=== PATIENT | female | born 1940 | race Caucasian/White ===

== ENCOUNTER 2020-03-21 02:02 | Inpatient (IN) ==
[2020-03-21 04:07] LABS: ABS Lymphocytes 0.5 10^3/ul (1.0-4.8); ABS Monocytes 0.3 10^3/ul (0-0.8); ABS Neutrophils 6.7 10^3/ul (1.5-7.7); Eosinophil % 0.1 %; Hematocrit 36 % (35-47); Hemoglobin 12.5 g/dL (12.0-16.0); Lymphocyte % 6.6 %; Mean Corpuscular HGB Conc 35 g/dL (31-36); Mean Corpuscular Hemoglobin 32 pg (27-31); Mean Corpuscular Volume 94 fL (80-97); Mean Platelet Volume 8.1 fL (7.4-10.4); Platelet Count 178 10^3/uL (150-450); Red Blood Count 3.85 10^6 /uL (3.70-4.87); Red Cell Distribution Width 14 % (10-15); White Blood Count 7.5 10^3/uL (3.5-10.8)
[2020-03-21 04:15] LABS: INR 1.26 (0.82-1.09)
[2020-03-21 04:28] LABS: ALT 20 U/L (7-52); AST 24 U/L (13-39); Albumin 4.1 g/dL (3.2-5.2); Albumin/Globulin Ratio 1.5 (1-3); Alkaline Phosphatase 49 U/L (34-104); Anion Gap 7 mmol/L (2-11); BUN/Creatinine Ratio 33.3 (8-20); Blood Urea Nitrogen 17 mg/dL (6-24); CO2 Carbon Dioxide 26 mmol/L (22-32); Calcium 9.4 mg/dL (8.6-10.3); Chloride 103 mmol/L (101-111); EGFR Non-African American 115.7 (>60); Globulin 2.7 g/dL (2-4); Glucose 138 mg/dL (70-100); Potassium 3.6 mmol/L (3.5-5.0); Sodium 136 mmol/L (135-145); Total Protein 6.8 g/dL (6.4-8.9)
[2020-03-21 04:30] LABS: Troponin I 0.01 ng/mL (<0.03)
[2020-03-21 04:38] LABS: Alcohol, S < 10 mg/dL (<10)
[2020-03-21 04:57] LABS: Urine Appearance Cloudy; Urine Bilirubin Negative (Negative); Urine Blood Negative (Negative); Urine Color Yellow; Urine Glucose Negative (Negative); Urine Ketones 1+ (Negative); Urine Nitrite Negative (Negative); Urine Protein 1+(30 mg/dL) (Negative); Urine Specific Gravity 1.026 (1.010-1.030); Urine Urobilinogen Negative (Negative)
[2020-03-21 05:01] LABS: Urine Bacteria Absent (Absent); Urine Red Blood Cell Trace(0-2/hpf) (Absent); Urine Squamous Epithelial Cell Present (Absent); Urine White Blood Cell 1+(6-10/hpf) (Absent)
[2020-03-21] MEDS ORDERED: levETIRAcetam 1000MG IVPREMIX 1,000 MG/100 ML BAG IVPB ONE (05:41)
[2020-03-21] MEDS ORDERED: Ondansetron 4 mg VIAL 2 MG/ML 2 ml VIAL IV PRN (08:57)
[2020-03-21] MEDS ORDERED: Polyethylene Glycol 3350 17 GM PACKET PO PRN (09:33)
[2020-03-21] MEDS ORDERED: Magnesium Hydroxide LIQ 30 ML UDC PO PRN (09:33)
[2020-03-21] MEDS ORDERED: Senna TAB 8.6 mg TAB PO PRN (09:33)
[2020-03-21] MEDS: levETIRAcetam 1000MG IVPREMIX 1,000 MG/100 ML BAG IVPB SCH (16:05)
[2020-03-21] MEDS: Magnesium Hydroxide LIQ 30 ML UDC PO SCH (21:36)
[2020-03-22] MEDS: Morphine 2 MG/ML SYRINGE IV PRN ×2 (03:31→07:56)
[2020-03-22] MEDS: levETIRAcetam 1000MG IVPREMIX 1,000 MG/100 ML BAG IVPB SCH ×2 (05:23→17:03)
[2020-03-22] MEDS: Magnesium Hydroxide LIQ 30 ML UDC PO SCH ×2 (08:04→19:41)
[2020-03-22 11:23] LABS: ABS Eosinophils 0.1 10^3/ul (0-0.6); ABS Lymphocytes 0.6 10^3/ul (1.0-4.8); ABS Monocytes 0.5 10^3/ul (0-0.8); ABS Neutrophils 5.4 10^3/ul (1.5-7.7); Eosinophil % 0.9 %; Hematocrit 38 % (35-47); Hemoglobin 12.7 g/dL (12.0-16.0); Lymphocyte % 8.7 %; Mean Corpuscular HGB Conc 33 g/dL (31-36); Mean Corpuscular Hemoglobin 32 pg (27-31); Mean Corpuscular Volume 95 fL (80-97); Mean Platelet Volume 7.8 fL (7.4-10.4); Platelet Count 164 10^3/uL (150-450); Red Blood Count 3.99 10^6 /uL (3.70-4.87); Red Cell Distribution Width 14 % (10-15); White Blood Count 6.5 10^3/uL (3.5-10.8)
[2020-03-22 13:35] LABS: BUN/Creatinine Ratio 40.4 (8-20); Calcium 9.4 mg/dL (8.6-10.3); EGFR African American 153.9 (>60); EGFR Non-African American 127.2 (>60); Magnesium 2.1 mg/dL (1.9-2.7); Potassium 3.8 mmol/L (3.5-5.0)
[2020-03-22] MEDS ORDERED: Lorazepam PYXIS KEY PRN (14:54)
[2020-03-22] MEDS ORDERED: LORazepam 2 mg VIAL 1 ml ONE (14:57)
[2020-03-22] MEDS ORDERED: Lorazepam PYXIS KEY ONE (14:57)
[2020-03-22] MEDS: LORazepam 2 mg VIAL 1 ml IV PUSH PRN (15:00)
[2020-03-23] MEDS: LORazepam 2 mg VIAL 1 ml IV PUSH PRN (02:24)
[2020-03-23] MEDS: levETIRAcetam 1000MG IVPREMIX 1,000 MG/100 ML BAG IVPB SCH ×2 (04:45→17:15)
[2020-03-23 05:15] LABS: Calcium 8.7 mg/dL (8.6-10.3); Magnesium 2.1 mg/dL (1.9-2.7); Potassium 3.6 mmol/L (3.5-5.0)
[2020-03-23 05:20] LABS: BUN/Creatinine Ratio 47.5 (8-20); EGFR African American 185.4 (>60); EGFR Non-African American 153.2 (>60)
[2020-03-23 05:35] LABS: ABS Eosinophils 0.1 10^3/ul (0-0.6); ABS Monocytes 0.7 10^3/ul (0-0.8); ABS Neutrophils 5.2 10^3/ul (1.5-7.7); Eosinophil % 1.4 %; Hematocrit 36 % (35-47); Lymphocyte % 14.2 %; Mean Corpuscular HGB Conc 33 g/dL (31-36); Mean Corpuscular Hemoglobin 32 pg (27-31); Mean Corpuscular Volume 95 fL (80-97); Mean Platelet Volume 7.8 fL (7.4-10.4); Platelet Count 160 10^3/uL (150-450); Red Blood Count 3.77 10^6 /uL (3.70-4.87); Red Cell Distribution Width 13 % (10-15)
[2020-03-23] MEDS: Morphine 2 MG/ML SYRINGE IV PRN ×2 (06:10→14:44)
[2020-03-23] MEDS: hydrALAZINE 20 mg/ml 1 ML Vial IV IV SLOW PU PRN ×3 (09:36→17:10)
[2020-03-23] MEDS: Magnesium Hydroxide LIQ 30 ML UDC PO SCH ×3 (10:04→21:17)
[2020-03-23] MEDS ORDERED: Metoprolol Tartrate 5 mg VIAL 5 ml VIAL (1 mg/ml) IV ONE (10:29)
[2020-03-23] MEDS ORDERED: Metoprolol Tartrate 5 mg VIAL 5 ml VIAL (1 mg/ml) IV PRN ×2 (15:18→17:33)
[2020-03-23 16:20] LABS: Activated Partial Thrombo Time 26.7 seconds (26.0-38.0); INR 1.23 (0.82-1.09)
[2020-03-23] MEDS ORDERED: fentaNYL 100 mcg/2 ml 50 MCG/ML VIAL ONE (17:39)
[2020-03-23] MEDS ORDERED: Propofol 10 MG/ML 20 ML BTL ONE ×2 (17:42→20:01)
[2020-03-23] MEDS ORDERED: Bupivacaine 0.25% SDV 30 ML ONE ×2 (18:06→20:38)
[2020-03-23] MEDS ORDERED: Lidocaine 1% w EPI 1:100,000 MDV 20 ML VIAL ONE ×2 (18:06→20:37)
[2020-03-23] MEDS: Metoprolol Tartrate 5 mg VIAL 5 ml VIAL (1 mg/ml) IV PRN (18:19)
[2020-03-23] MEDS ORDERED: Vancomycin 750 MG in NS 0.9% 250 ML IVPB ONE (19:00)
[2020-03-23] MEDS ORDERED: Ondansetron 4 mg VIAL 2 MG/ML 2 ml VIAL IV PRN (19:04)
[2020-03-23] MEDS ORDERED: Naloxone 0.4 mg VIAL 0.4 mg/ml 1 ml VIAL IV PRN (19:04)
[2020-03-23] MEDS ORDERED: HYDROmorphone 1 MG/1 ML SYRINGE IV PRN (19:04)
[2020-03-23] MEDS ORDERED: fentaNYL 100 mcg/2 ml 50 MCG/ML VIAL IV PRN (19:04)
[2020-03-24] MEDS: Morphine 2 MG/ML SYRINGE IV PRN ×3 (01:02→16:01)
[2020-03-24 04:27] LABS: ABS Eosinophils 0.1 10^3/ul (0-0.6); ABS Lymphocytes 1.2 10^3/ul (1.0-4.8); ABS Monocytes 0.7 10^3/ul (0-0.8); ABS Neutrophils 5.2 10^3/ul (1.5-7.7); Eosinophil % 1.7 %; Hematocrit 36 % (35-47); Hemoglobin 12.2 g/dL (12.0-16.0); Mean Corpuscular HGB Conc 34 g/dL (31-36); Mean Corpuscular Hemoglobin 32 pg (27-31); Mean Corpuscular Volume 95 fL (80-97); Mean Platelet Volume 7.6 fL (7.4-10.4); Platelet Count 173 10^3/uL (150-450); Red Blood Count 3.81 10^6 /uL (3.70-4.87); Red Cell Distribution Width 14 % (10-15); White Blood Count 7.3 10^3/uL (3.5-10.8)
[2020-03-24 04:33] LABS: INR 1.26 (0.82-1.09)
[2020-03-24 04:42] LABS: BUN/Creatinine Ratio 56.8 (8-20); Calcium 9.1 mg/dL (8.6-10.3); EGFR African American 202.8 (>60); EGFR Non-African American 167.6 (>60); Potassium 3.5 mmol/L (3.5-5.0)
[2020-03-24] MEDS: levETIRAcetam 1000MG IVPREMIX 1,000 MG/100 ML BAG IVPB SCH ×2 (05:53→16:57)
[2020-03-24] MEDS: Magnesium Hydroxide LIQ 30 ML UDC PO SCH ×2 (09:46→22:02)
[2020-03-24] MEDS ORDERED: Lidocaine 2% PF 5 ML VIAL ONE (15:54)
[2020-03-24] MEDS ORDERED: Propofol 10 MG/ML 20 ML BTL ONE (15:54)
[2020-03-24] MEDS ORDERED: Rocuronium 50 mg VIAL 10 mg/ml 5 ml VIAL (50 mg) ONE (15:54)
[2020-03-24] MEDS ORDERED: fentaNYL 250 mcg/5 ml 50 MCG/ML 5 ml VIAL (250 MCG) ONE (15:54)
[2020-03-24] MEDS ORDERED: niCARdipine 0.1MG/ML IVPREMIX 20 MG/200 ML BAG IV ONE (18:00)
[2020-03-24] MEDS ORDERED: Mannitol 25% (12.5 GM) 50 ML 12.5 GM/50 ML VIAL IV ONE (18:00)
[2020-03-24] MEDS ORDERED: Albumin Human 5% 12.5 GM/250 ML BTL IV ONE (18:00)
[2020-03-24] MEDS ORDERED: Esmolol 10 MG/ML 10 ML (100 mg) ONE (18:23)
[2020-03-24] MEDS ORDERED: EPHEDrine (Pressors) 50 MG/ML VIAL ONE (18:55)
[2020-03-24] MEDS ORDERED: ceFAZolin VIAL VIAL ONE (19:11)
[2020-03-24] MEDS ORDERED: Dexamethasone IV 4 MG/ML VIAL 1 ml VIAL ONE (19:24)
[2020-03-24] MEDS ORDERED: Ondansetron 4 mg VIAL 2 MG/ML 2 ml VIAL ONE (19:24)
[2020-03-24] MEDS ORDERED: Acetaminophen IV 1 GM/100ML 100 ML ONE (19:30)
[2020-03-24] MEDS ORDERED: Phenylephrine 40 mcg/mL 10mL (400mcg) SYRINGE ONE (19:30)
[2020-03-24] MEDS ORDERED: hydrALAZINE 20 mg/ml 1 ML Vial IV ONE (20:10)
[2020-03-24] MEDS ORDERED: fentaNYL 100 mcg/2 ml 50 MCG/ML VIAL IV PRN (20:45)
[2020-03-24] MEDS ORDERED: DiMENhydriNATE IV 50 mg/ml 1 ml VIAL IV PUSH PRN (20:45)
[2020-03-24] MEDS ORDERED: Naloxone 0.4 mg VIAL 0.4 mg/ml 1 ml VIAL IV PRN (20:45)
[2020-03-24] MEDS ORDERED: Labetalol IV 5 MG/ML 20 ml VIAL ONE (20:50)
[2020-03-24] MEDS ORDERED: fentaNYL 100 mcg/2 ml 50 MCG/ML VIAL ONE (20:51)
[2020-03-25] MEDS: Lactated Ringers 1000 ml BAG 1,000 ML IV SCH ×2 (00:05→09:59)
[2020-03-25] MEDS: Morphine 2 MG/ML SYRINGE IV PRN ×6 (01:39→21:24)
[2020-03-25] MEDS: levETIRAcetam 1000MG IVPREMIX 1,000 MG/100 ML BAG IVPB SCH ×2 (04:06→16:57)
[2020-03-25 04:20] LABS: ABS Lymphocytes 0.3 10^3/ul (1.0-4.8); ABS Monocytes 0.4 10^3/ul (0-0.8); ABS Neutrophils 6.5 10^3/ul (1.5-7.7); Hematocrit 31 % (35-47); Hemoglobin 10.5 g/dL (12.0-16.0); Lymphocyte % 4.8 %; Mean Corpuscular HGB Conc 34 g/dL (31-36); Mean Corpuscular Hemoglobin 32 pg (27-31); Mean Corpuscular Volume 95 fL (80-97); Mean Platelet Volume 8.1 fL (7.4-10.4); Platelet Count 159 10^3/uL (150-450); Red Blood Count 3.24 10^6 /uL (3.70-4.87); Red Cell Distribution Width 13 % (10-15); White Blood Count 7.2 10^3/uL (3.5-10.8)
[2020-03-25 04:40] LABS: Albumin 3.2 g/dL (3.2-5.2); Albumin/Globulin Ratio 1.5 (1-3); BUN/Creatinine Ratio 67.5 (8-20); Calcium 8.7 mg/dL (8.6-10.3); EGFR African American 185.4 (>60); EGFR Non-African American 153.2 (>60); Globulin 2.2 g/dL (2-4); Potassium 3.7 mmol/L (3.5-5.0); Total Bilirubin 0.5 mg/dL (0.2-1.0); Total Protein 5.4 g/dL (6.4-8.9)
[2020-03-25] MEDS: Magnesium Hydroxide LIQ 30 ML UDC PO SCH ×2 (08:23→20:32)
[2020-03-25] MEDS ORDERED: Morphine 2 MG/ML SYRINGE ONE (12:57)
[2020-03-25] MEDS: Vancomycin 750 MG in NS 0.9% 250 ML IVPB SCH (14:17)
[2020-03-25] MEDS ORDERED: Lactated Ringers 1000 ml BAG 1,000 ML IV SCH (14:38)
[2020-03-26] MEDS: Vancomycin 750 MG in NS 0.9% 250 ML IVPB SCH (00:37)
[2020-03-26] MEDS: Morphine 2 MG/ML SYRINGE IV PRN ×3 (00:42→08:20)
[2020-03-26] MEDS: Metoprolol Tartrate 5 mg VIAL 5 ml VIAL (1 mg/ml) IV PRN ×2 (01:30→10:33)
[2020-03-26 04:19] LABS: ABS Eosinophils 0.3 10^3/ul (0-0.6); ABS Lymphocytes 0.9 10^3/ul (1.0-4.8); ABS Monocytes 0.5 10^3/ul (0-0.8); ABS Neutrophils 5.7 10^3/ul (1.5-7.7); Eosinophil % 3.9 %; Hematocrit 32 % (35-47); Lymphocyte % 11.6 %; Mean Corpuscular HGB Conc 34 g/dL (31-36); Mean Corpuscular Hemoglobin 32 pg (27-31); Mean Corpuscular Volume 94 fL (80-97); Mean Platelet Volume 7.7 fL (7.4-10.4); Platelet Count 160 10^3/uL (150-450); Red Blood Count 3.39 10^6 /uL (3.70-4.87); Red Cell Distribution Width 13 % (10-15); White Blood Count 7.4 10^3/uL (3.5-10.8)
[2020-03-26] MEDS: levETIRAcetam 1000MG IVPREMIX 1,000 MG/100 ML BAG IVPB SCH ×2 (04:25→17:04)
[2020-03-26] MEDS: Lactated Ringers 1000 ml BAG 1,000 ML IV SCH ×2 (04:26→10:54)
[2020-03-26 04:38] LABS: BUN/Creatinine Ratio 55.6 (8-20); Calcium 8.8 mg/dL (8.6-10.3); EGFR African American 209.3 (>60); Potassium 3.8 mmol/L (3.5-5.0)
[2020-03-26] MEDS: Magnesium Hydroxide LIQ 30 ML UDC PO SCH ×2 (07:57→22:15)
[2020-03-26] MEDS: Acetaminophen IV 1 GM/100ML 100 ML IVPB SCH (16:25)
[2020-03-27] MEDS: Metoprolol Tartrate 5 mg VIAL 5 ml VIAL (1 mg/ml) IV PRN ×2 (05:09→10:24)
[2020-03-27] MEDS: levETIRAcetam 1000MG IVPREMIX 1,000 MG/100 ML BAG IVPB SCH ×2 (05:11→16:33)
[2020-03-27] MEDS: Lactated Ringers 1000 ml BAG 1,000 ML IV SCH (07:38)
[2020-03-27] MEDS: Acetaminophen IV 1 GM/100ML 100 ML IVPB SCH (10:14)
[2020-03-27] MEDS: Magnesium Hydroxide LIQ 30 ML UDC PO SCH ×2 (10:19→21:00)
[2020-03-27 11:24] LABS: ABS Eosinophils 0.2 10^3/ul (0-0.6); ABS Lymphocytes 0.9 10^3/ul (1.0-4.8); ABS Monocytes 0.5 10^3/ul (0-0.8); ABS Neutrophils 4.7 10^3/ul (1.5-7.7); Eosinophil % 3.9 %; Hematocrit 30 % (35-47); Hemoglobin 10.1 g/dL (12.0-16.0); Lymphocyte % 14.5 %; Mean Corpuscular HGB Conc 34 g/dL (31-36); Mean Corpuscular Hemoglobin 32 pg (27-31); Mean Corpuscular Volume 95 fL (80-97); Mean Platelet Volume 7.8 fL (7.4-10.4); Platelet Count 169 10^3/uL (150-450); Red Blood Count 3.12 10^6 /uL (3.70-4.87); Red Cell Distribution Width 14 % (10-15); White Blood Count 6.3 10^3/uL (3.5-10.8)
[2020-03-27 11:43] LABS: BUN/Creatinine Ratio 55.6 (8-20); Calcium 8.4 mg/dL (8.6-10.3); EGFR African American 209.3 (>60); Potassium 3.7 mmol/L (3.5-5.0)
[2020-03-27] MEDS: LORazepam 2 mg VIAL 1 ml IV PUSH PRN (14:02)
[2020-03-27 14:32] LABS: Urine Appearance Cloudy; Urine Bilirubin Negative (Negative); Urine Blood Negative (Negative); Urine Color Yellow; Urine Glucose Negative (Negative); Urine Ketones 1+ (Negative); Urine Nitrite Negative (Negative); Urine Protein 1+(30 mg/dL) (Negative); Urine Specific Gravity 1.032 (1.010-1.030); Urine Urobilinogen Positive (Negative)
[2020-03-27 14:41] LABS: Urine Bacteria Absent (Absent); Urine Red Blood Cell Absent (Absent); Urine Squamous Epithelial Cell Present (Absent); Urine White Blood Cell 1+(6-10/hpf) (Absent)
[2020-03-28] MEDS: Metoprolol Tartrate 5 mg VIAL 5 ml VIAL (1 mg/ml) IV PRN (03:46)
[2020-03-28] MEDS: levETIRAcetam 1000MG IVPREMIX 1,000 MG/100 ML BAG IVPB SCH ×2 (05:12→16:32)
[2020-03-28 05:27] LABS: ABS Basophils 0.1 10^3/ul (0-0.2); ABS Eosinophils 0.1 10^3/ul (0-0.6); ABS Lymphocytes 0.8 10^3/ul (1.0-4.8); ABS Monocytes 0.5 10^3/ul (0-0.8); ABS Neutrophils 4.6 10^3/ul (1.5-7.7); Eosinophil % 1.9 %; Hematocrit 29 % (35-47); Lymphocyte % 13.3 %; Mean Corpuscular HGB Conc 35 g/dL (31-36); Mean Corpuscular Hemoglobin 33 pg (27-31); Mean Corpuscular Volume 94 fL (80-97); Mean Platelet Volume 7.5 fL (7.4-10.4); Platelet Count 171 10^3/uL (150-450); Red Blood Count 3.09 10^6 /uL (3.70-4.87); Red Cell Distribution Width 13 % (10-15); White Blood Count 6.1 10^3/uL (3.5-10.8)
[2020-03-28 05:51] LABS: Anion Gap 8 mmol/L (2-11); Blood Urea Nitrogen 17 mg/dL (6-24); CO2 Carbon Dioxide 28 mmol/L (22-32); Calcium 8.1 mg/dL (8.6-10.3); Chloride 106 mmol/L (101-111); EGFR African American 258.4 (>60); EGFR Non-African American 213.5 (>60); Glucose 111 mg/dL (70-100); Potassium 3.8 mmol/L (3.5-5.0); Sodium 142 mmol/L (135-145)
[2020-03-28 06:11] LABS: TSH Ultra Thyroid Stim Horm 1.43 mcIU/mL (0.34-5.60)
[2020-03-28] MEDS: Magnesium Hydroxide LIQ 30 ML UDC PO SCH ×2 (07:42→22:34)
[2020-03-28] MEDS: Lactated Ringers 1000 ml BAG 1,000 ML IV SCH (09:37)
[2020-03-28] MEDS: Acetaminophen IV 1 GM/100ML 100 ML IVPB SCH ×2 (13:51→19:51)
[2020-03-29] MEDS: Acetaminophen IV 1 GM/100ML 100 ML IVPB SCH ×2 (01:32→07:51)
[2020-03-29] MEDS ORDERED: Morphine 2 MG/ML SYRINGE IV ONE ×3 (02:07→06:02)
[2020-03-29] MEDS ORDERED: Metoprolol Tartrate 5 mg VIAL 5 ml VIAL (1 mg/ml) IV ONE ×2 (04:00→05:30)
[2020-03-29] MEDS: levETIRAcetam 1000MG IVPREMIX 1,000 MG/100 ML BAG IVPB SCH ×2 (04:36→16:40)
[2020-03-29] MEDS: Magnesium Hydroxide LIQ 30 ML UDC PO SCH ×2 (07:43→20:57)
[2020-03-29 08:29] LABS: ABS Eosinophils 0.2 10^3/ul (0-0.6); ABS Lymphocytes 0.9 10^3/ul (1.0-4.8); ABS Monocytes 0.6 10^3/ul (0-0.8); ABS Neutrophils 4.7 10^3/ul (1.5-7.7); Eosinophil % 2.9 %; Hematocrit 30 % (35-47); Hemoglobin 10.2 g/dL (12.0-16.0); Lymphocyte % 13.9 %; Mean Corpuscular HGB Conc 34 g/dL (31-36); Mean Corpuscular Hemoglobin 32 pg (27-31); Mean Corpuscular Volume 94 fL (80-97); Mean Platelet Volume 7.4 fL (7.4-10.4); Platelet Count 197 10^3/uL (150-450); Red Blood Count 3.19 10^6 /uL (3.70-4.87); Red Cell Distribution Width 13 % (10-15); White Blood Count 6.4 10^3/uL (3.5-10.8)
[2020-03-29 08:44] LABS: Anion Gap 5 mmol/L (2-11); Blood Urea Nitrogen 15 mg/dL (6-24); CO2 Carbon Dioxide 28 mmol/L (22-32); Calcium 8.2 mg/dL (8.6-10.3); Chloride 104 mmol/L (101-111); EGFR African American 258.4 (>60); EGFR Non-African American 213.5 (>60); Glucose 120 mg/dL (70-100); Potassium 3.8 mmol/L (3.5-5.0); Sodium 137 mmol/L (135-145)
[2020-03-29] MEDS: Lactated Ringers 1000 ml BAG 1,000 ML IV SCH (13:17)
[2020-03-30] MEDS: Metoprolol Tartrate 5 mg VIAL 5 ml VIAL (1 mg/ml) IV PRN ×3 (01:24→21:18)
[2020-03-30] MEDS: levETIRAcetam 1000MG IVPREMIX 1,000 MG/100 ML BAG IVPB SCH ×2 (05:48→16:49)
[2020-03-30] MEDS: Magnesium Hydroxide LIQ 30 ML UDC PO SCH ×2 (09:01→21:09)
[2020-03-30 09:32] LABS: ABS Basophils 0.1 10^3/ul (0-0.2); ABS Eosinophils 0.1 10^3/ul (0-0.6); ABS Lymphocytes 0.9 10^3/ul (1.0-4.8); ABS Monocytes 0.5 10^3/ul (0-0.8); ABS Neutrophils 4.7 10^3/ul (1.5-7.7); Eosinophil % 2.4 %; Hematocrit 31 % (35-47); Hemoglobin 10.8 g/dL (12.0-16.0); Lymphocyte % 14.6 %; Mean Corpuscular HGB Conc 35 g/dL (31-36); Mean Corpuscular Hemoglobin 32 pg (27-31); Mean Corpuscular Volume 92 fL (80-97); Platelet Count 239 10^3/uL (150-450); Red Blood Count 3.38 10^6 /uL (3.70-4.87); Red Cell Distribution Width 13 % (10-15); White Blood Count 6.3 10^3/uL (3.5-10.8)
[2020-03-30 09:49] LABS: BUN/Creatinine Ratio 30.3 (8-20); Calcium 8.6 mg/dL (8.6-10.3); EGFR African American 231.4 (>60); EGFR Non-African American 191.3 (>60); Potassium 4.1 mmol/L (3.5-5.0)
[2020-03-30] MEDS: Lactated Ringers 1000 ml BAG 1,000 ML IV SCH (11:47)
[2020-03-31] MEDS: Metoprolol Tartrate 5 mg VIAL 5 ml VIAL (1 mg/ml) IV PRN (01:35)
[2020-03-31] MEDS: levETIRAcetam 1000MG IVPREMIX 1,000 MG/100 ML BAG IVPB SCH ×2 (05:06→17:09)
[2020-03-31] MEDS: Magnesium Hydroxide LIQ 30 ML UDC PO SCH ×3 (08:09→21:47)
[2020-03-31] MEDS: Lactated Ringers 1000 ml BAG 1,000 ML IV SCH (08:15)
[2020-04-01] MEDS: levETIRAcetam 1000MG IVPREMIX 1,000 MG/100 ML BAG IVPB SCH ×2 (05:09→17:09)
[2020-04-01] MEDS: Magnesium Hydroxide LIQ 30 ML UDC PO SCH ×2 (10:30→22:34)
[2020-04-02] MEDS: levETIRAcetam 1000MG IVPREMIX 1,000 MG/100 ML BAG IVPB SCH ×2 (04:58→17:50)
[2020-04-02] MEDS: Magnesium Hydroxide LIQ 30 ML UDC PO SCH ×2 (08:17→20:32)
[2020-04-03] MEDS: levETIRAcetam 1000MG IVPREMIX 1,000 MG/100 ML BAG IVPB SCH ×2 (05:47→17:10)
[2020-04-03] MEDS: Magnesium Hydroxide LIQ 30 ML UDC PO SCH (07:38)
[2020-04-04] MEDS: levETIRAcetam 1000MG IVPREMIX 1,000 MG/100 ML BAG IVPB SCH ×2 (05:08→16:29)
[2020-04-05] MEDS ORDERED: Morphine 2 MG/ML SYRINGE IV ONE (01:26)
[2020-04-05] MEDS: levETIRAcetam 1000MG IVPREMIX 1,000 MG/100 ML BAG IVPB SCH (04:29)
[2020-04-06 08:00] VITALS: BP 155/84
== END 2020-04-06 09:30 | disposition hospice, home (50) | DRG 981 ==
LOC: ED 02:02 → ICU 09:59 → SSU 03-26 10:32
PROVIDERS: ADMIT Student in an Organized Health Care Education/Training Program; ATTEND Internal Medicine